=== PATIENT | female | born 1975 | race Caucasian/White ===

== ENCOUNTER 2016-06-05 14:45 | Inpatient (IN) | payer BC ==
[~2016-06-05] VITALS: Ht 162.6 cm; Wt 81.0 kg
[2016-06-05] MEDS ORDERED: MoRPHine SULFATE 4 MG/ML 1 ML CARP\\VIAL IV STA (15:10)
[2016-06-05] MEDS ORDERED: SODIUM CHLORIDE 0.9% 1000ML 1,000 ML IV STA (15:10)
[2016-06-05] MEDS ORDERED: ONDANSETRON INJ 2 MG/ML 2 ML VIAL IV STA (15:10)
[2016-06-05] MEDS ORDERED: VENL-271 PO (15:29)
[2016-06-05] MEDS ORDERED: ACET-1256 PO (15:29)
[2016-06-05] MEDS ORDERED: HYDR200T5 PO (15:29)
[2016-06-05] MEDS ORDERED: TACR1CAP PO (15:29)
[2016-06-05] MEDS ORDERED: SIMV20TA2 PO (15:29)
[2016-06-05] MEDS ORDERED: PRED-301 PO (15:29)
[2016-06-05] MEDS ORDERED: TPRSR/100 PO (15:29)
[2016-06-05] MEDS ORDERED: MYCO500T4 PO ×2 (15:29)
[2016-06-05] MEDS ORDERED: CLOP1TAB15 PO (15:29)
[2016-06-05] MEDS ORDERED: PRLSR20 PO (15:29)
--- NOTE | 2016-06-05 16:06 | DIAGNOSTIC IMAGING REPORT ---
CT SCAN OF THE ABDOMEN AND PELVIS WITHOUT CONTRAST CLINICAL HISTORY: Abdominal pain, nausea, history of renal transplantation. COMPARISON STUDY: No previous studies for comparison. TECHNIQUE: CT scan of the abdomen and pelvis was performed from the lung bases to the proximal femurs. Images are reviewed in the axial, sagittal, and coronal planes. IV contrast was not administered for this examination. CT DOSE: 449.19 mGy.cm FINDINGS: Lower chest: There are mild bibasal atelectatic changes. Liver: The unenhanced liver is normal in size, contour, and attenuation. There is no intrahepatic biliary ductal dilatation. Gallbladder: Unremarkable. Spleen: Normal in size and attenuation. Pancreas: Comparison. Somewhat atrophic. No masses are visualized. No ductal dilatation is evident Adrenal glands: Unremarkable. Kidneys: The [place] kidneys are atrophic. There is a right lower quadrant transplant kidney. There are no perinephric fluid collections. There is minimal fullness the right renal transplant collecting system Bowel: There are no transition zones indicate bowel obstruction. Evaluation the bowel is limited given the lack of oral and intravenous contrast. There is moderately extensive sigmoid diverticulosis. There are multiple small gas bubbles within the left pelvic region. I would favor these were being related to diverticula as opposed to an extraluminal gas bubbles. There is a suggestion of mild bowel wall thickening most pronounced within the ascending colon. This could indicate a colitis. Peritoneum: No free air is visualized. There is trace free fluid. There is increased density within the peritoneal fat. Vasculature: The abdominal aorta is normal in course and caliber. Adenopathy: None. Pelvic viscera: Bilateral tubal occlusion devices are visualized. Skeletal structures: No destructive osseous lesions are seen. IMPRESSION: 1. Atrophy of the [place] kidneys 2. Right lower quadrant transplant kidney. No perinephric fluid collections. Mild fullness of the transplant collecting system a finding which may be physiologic 3. Limited evaluation of the bowel given the lack of intravenous and oral contrast. Moderately extensive diverticulosis. Mild bowel wall thickening most pronounced involving the ascending colon. Clinical correlation in regards to a colitis is recommended 4. No evidence of bowel obstruction. No evidence of free air. No evidence of acute appendicitis. 5. Trace free fluid within the pelvis Electronically signed by: Gavino Horton M.D. 06/05/2016 4:04 PM Dictated Date/Time: 06/05/2016 3:54 PM
[2016-06-05 16:08] LABS: BASO % 0.1 %; BASO ABS # 0.02 K/uL (0-0.2); COMPLETE YES; EOS % 0.1 %; HEMATOCRIT 42.3 % (37-47); IG% 0.3 %; LYMPH % 4.1 %; LYMPH ABS # 0.79 K/uL (1.2-3.4); MEAN CELL VOLUME 88.1 fL (80-100); MEAN CORPUSCULAR HEMOGLOBIN 28.5 pg (25-34); MEAN CORPUSCULAR HGB CONC 32.4 g/dl (32-36); MEAN PLATELET VOLUME 11.5 fL (7.4-10.4); MONO % 3.9 %; NEUT % 91.5 %; PLATELET COUNT 233 K/uL (130-400); WHITE BLOOD COUNT 19.11 K/uL (4.8-10.8)
[2016-06-05] MEDS: MoRPHine SULFATE 4 MG/ML 1 ML CARP\\VIAL IV PRN ×3 (16:13→21:15)
[2016-06-05 16:29] LABS: BUN/CREATININE RATIO 16.8 (10-20); POTASSIUM 3.9 mmol/L (3.5-5.1)
[2016-06-05 16:35] LABS: URINE APPEARANCE CLEAR (CLEAR); URINE BILIRUBIN NEG (NEG); URINE COLOR YELLOW; URINE EPITHELIAL CELL AUTO >30 /lpf (0-5); URINE NITRITE NEG (NEG); URINE SPECIFIC GRAVITY 1.015 (1.000-1.030); UROBILINOGEN NEG (NEG)
[2016-06-05 16:38] LABS: MANUAL MICROSCOPIC REQUIRED? NO; REVIEW REQ? NO
[2016-06-05 17:20] VITALS: Ht 162.6 cm; Wt 81.0 kg
[2016-06-05] MEDS ORDERED: ACETAMINOPHEN 325 MG TAB PO PRN (18:00)
[2016-06-05] MEDS ORDERED: ENOXAPARIN 40 MG/0.4 ML SYR SQ SCH (18:00)
--- NOTE | 2016-06-05 18:16 | History and Physical ---
History & Physical Date & Time of Service: Jun 05, 2016 at 17:58 Chief Complaint: Abd Pain Primary Care Physician: No Doctor, Assigned History of Present Illness Source: patient This is a 41 yo F with PMHx of right abdominal kidney transplant in 2002 on immunsuppressant regimen, HTN and diverticulosis presenting with acute onset of abdominal pain which started at 11 Am today. She was scheduled to see rheumatology this morning and went to her appointment but was sent directly to the ED. She recently returned from a 2 week long trip in [place] on Thursday. She reports eating a variety of food including undercooked meats and shellfish. She traveled with her and a friend who do not have any abdominal complaints. She notes feeling bloated with worsening abdominal pain with bowel movements. She first noted this pain with a bowel movement today, and notes it was loose. She has received morphine sulfate which has dropped her pain from a 10/10 to a 5/10. She denies any nausea, vomiting, constipation. She denies fever, sweats or chills. Pt does report night sweats which have been ongoing for some time now. Here in the ED WBC is elevated at 19K with a left shift, Na= 135. A CT of the abdomen w/o contrast was obtained and shows a moderated diverticulosis. Past Medical/Surgical History Diverticulosis with acute diverticulitis Right abdominal kidney transplant HTN Family History FH: cancer FH: diabetes mellitus FH: gallbladder disease FH: heart disease FH: hypertension FH: kidney disease Social History Smoking Status: Never Smoker Smokeless Tobacco Use: No Alcohol Use: socially Drug Use: none Marital Status: Housing status: lives with family Occupational Status: employed Allergies Coded Allergies: Cefazolin (Verified Allergy, Severe, ANAPHYLAXIS, 06/05/16) Sulfa Antibiotics (Verified Allergy, Intermediate, Hives, 06/05/16) Azithromycin (Verified Adverse Reaction, Intermediate, Nausea/Vomiting, ) Home Medications Scheduled Clopidogrel (Plavix), 75 MG PO DAILY Hydroxychloroquine Sulfate (Plaquenil), 200 MG PO DAILY Metoprolol Succinate (Metoprolol Succinate ER), 100 MG PO BID Mycophenolate Mofetil (Cellcept), 500 MG PO QPM Mycophenolate Mofetil (Cellcept), 1,000 MG PO QAM Omeprazole (Prilosec), 20 MG PO DAILY Prednisone (Prednisone), 5 MG PO DAILY Simvastatin (Zocor), 20 MG PO QPM Tacrolimus (Prograf), 2 MG PO BID Venlafaxine Hcl (Venlafaxine Hcl Er), 37.5 MG PO QPM Scheduled PRN Acetaminophen (Tylenol), 1,000 MG PO UD PRN for Pain Review of Systems Constitutional: No chills, No fatigue, No fever, No sweats, No weakness, No weight loss Eyes: No diplopia ENT: No sore throat, No trouble swallowing Respiratory: No cough, No dyspnea on exertion, No shortness of breath Cardiovascular: No chest pain Abdomen: + diarrhea, + pain, No constipation, No nausea, No vomiting Musculoskeletal: No calf pain, No joint pain, No swelling Genitourinary - Female: No dysuria Neurologic: No balance problems, No numbness/tingling Psychiatric: No anxiety, No depression symptoms Endocrine: No fatigue Integumentary: No itch, No rash Physical Exam Vital Signs Date Time Temp Pulse Resp B/P Pulse Ox O2 Delivery O2 Flow Rate FiO2 06/05/16 17:13 88 16 131/76 99 Room Air 06/05/16 14:49 36.7 78 20 114/75 99 Room Air General Appearance: WD/WN, + moderate distress Head: normocephalic, atraumatic Eyes: PERRL, EOMI, + pertinent finding (mucous membranes moist) ENT: hearing grossly normal, pharynx normal Neck: supple, no JVD Respiratory/Chest: chest non-tender, lungs clear, no respiratory distress, no accessory muscle use Cardiovascular: regular rate, rhythm, no JVD, no murmur Abdomen/GI: normal bowel sounds, soft, + tenderness (with palpation LLQ + rebound tenderness, no pain with percussion, no distension, + scar on RLQ s/p kidney transplant) Back: normal inspection Extremities/Musculoskelatal: normal inspection, no calf tenderness, no pedal edema Neurologic/Psych: alert, normal mood/affect, oriented x 3 Skin: normal color, warm/dry Diagnostics Laboratory Results Results Past 24 Hours Test 06/05/16 15:30 06/05/16 16:15 Range/Units White Blood Count 19.11 4.8-10.8 K/uL Red Blood Count 4.80 4.2-5.4 M/uL Hemoglobin 13.7 12.0-16.0 g/dL Hematocrit 42.3 37-47 % Mean Corpuscular Volume 88.1 80-100 fL Mean Corpuscular Hemoglobin 28.5 25-34 pg Mean Corpuscular Hemoglobin Concent 32.4 32-36 g/dl Platelet Count 233 130-400 K/uL Mean Platelet Volume 11.5 7.4-10.4 fL Neutrophils (%) (Auto) 91.5 % Lymphocytes (%) (Auto) 4.1 % Monocytes (%) (Auto) 3.9 % Eosinophils (%) (Auto) 0.1 % Basophils (%) (Auto) 0.1 % Neutrophils # (Auto) 17.50 1.4-6.5 K/uL Lymphocytes # (Auto) 0.79 1.2-3.4 K/uL Monocytes # (Auto) 0.74 0.11-0.59 K/uL Eosinophils # (Auto) 0.01 0-0.5 K/uL Basophils # (Auto) 0.02 0-0.2 K/uL RDW Standard Deviation 42.6 36.4-46.3 fL RDW Coefficient of Variation 13.1 11.5-14.5 % Immature Granulocyte % (Auto) 0.3 % Immature Granulocyte # (Auto) 0.05 0.00-0.02 K/uL Sodium Level 135 136-145 mmol/L Potassium Level 3.9 3.5-5.1 mmol/L Chloride Level 100 98-107 mmol/L Carbon Dioxide Level 28 21-32 mmol/L Anion Gap 7.0 3-11 mmol/L Blood Urea Nitrogen 17 7-18 mg/dl Creatinine 1.00 0.60-1.20 mg/dl Est Creatinine Clear Calc Drug Dose 74.7 ml/min Estimated GFR () 79.9 Estimated GFR (Non- 69.0 BUN/Creatinine Ratio 16.8 10-20 Random Glucose 102 70-99 mg/dl Calcium Level 9.0 8.5-10.1 mg/dl Total Bilirubin 0.6 0.2-1 mg/dl Direct Bilirubin 0.2 0-0.2 mg/dl Aspartate Amino Transf (AST/SGOT) 18 15-37 U/L Alanine Aminotransferase (ALT/SGPT) 20 12-78 U/L Alkaline Phosphatase 45 45-117 U/L Total Protein 6.9 6.4-8.2 gm/dl Albumin 4.0 3.4-5.0 gm/dl Lipase 81 73-393 U/L Urine Color YELLOW Urine Appearance CLEAR CLEAR Urine pH 6.0 4.5-7.5 Urine Specific [place] 1.015 1.000-1.030 Urine Protein NEG NEG Urine Glucose (UA) NEG NEG Urine Ketones 1+ NEG Urine Occult Blood NEG NEG Urine Nitrite NEG NEG Urine Bilirubin NEG NEG Urine Urobilinogen NEG NEG Urine Leukocyte Esterase SMALL NEG Urine WBC (Auto) 1-5 0-5 /hpf Urine RBC (Auto) 0-4 0-4 /hpf Urine Hyaline Casts (Auto) 1-5 0-5 /lpf Urine Epithelial Cells (Auto) >30 0-5 /lpf Urine Bacteria (Auto) NEG NEG Urine Test NEG NEG Diagnostic Radiology CT SCAN OF THE ABDOMEN AND PELVIS WITHOUT CONTRAST CLINICAL HISTORY: Abdominal pain, nausea, history of renal transplantation. COMPARISON STUDY: No previous studies for comparison. TECHNIQUE: CT scan of the abdomen and pelvis was performed from the lung bases to the proximal femurs. Images are reviewed in the axial, sagittal, and coronal planes. IV contrast was not administered for this examination. CT DOSE: 449.19 mGy.cm FINDINGS: Lower chest: There are mild bibasal atelectatic changes. Liver: The unenhanced liver is normal in size, contour, and attenuation. There is no intrahepatic biliary ductal dilatation. Gallbladder: Unremarkable. Spleen: Normal in size and attenuation. Pancreas: Comparison. Somewhat atrophic. No masses are visualized. No ductal dilatation is evident Adrenal glands: Unremarkable. Kidneys: The [place] kidneys are atrophic. There is a right lower quadrant transplant kidney. There are no perinephric fluid collections. There is minimal fullness the right renal transplant collecting system Bowel: There are no transition zones indicate bowel obstruction. Evaluation the bowel is limited given the lack of oral and intravenous contrast. There is moderately extensive sigmoid diverticulosis. There are multiple small gas bubbles within the left pelvic region. I would favor these were being related to diverticula as opposed to an extraluminal gas bubbles. There is a suggestion of mild bowel wall thickening most pronounced within the ascending colon. This could indicate a colitis. Peritoneum: No free air is visualized. There is trace free fluid. There is increased density within the peritoneal fat. Vasculature: The abdominal aorta is normal in course and caliber. Adenopathy: None. Pelvic viscera: Bilateral tubal occlusion devices are visualized. Skeletal structures: No destructive osseous lesions are seen. IMPRESSION: 1. Atrophy of the [place] kidneys 2. Right lower quadrant transplant kidney. No perinephric fluid collections. Mild fullness of the transplant collecting system a finding which may be physiologic 3. Limited evaluation of the bowel given the lack of intravenous and oral contrast. Moderately extensive diverticulosis. Mild bowel wall thickening most pronounced involving the ascending colon. Clinical correlation in regards to a colitis is recommended 4. No evidence of bowel obstruction. No evidence of free air. No evidence of acute appendicitis. 5. Trace free fluid within the pelvis Electronically signed by: Gavino Horton M.D. 06/05/2016 4:04 PM Dictated Date/Time: 06/05/2016 3:54 PM The status of this report is Signed. Impression Assessment and Plan This is a 41 yo F with PMHx of right abdominal kidney transplant in 2002 on immunsuppressant regimen, HTN and diverticulosis presenting with acute onset of abdominal pain which started at 11 Am today. Diverticulitis - Admit to med surg - Will start the pt on cipro/flagyl - WBC 19K with left shift, afebrile so far, other VSS - NSS at 100ml/hr for hydration - Check stool studies to rule out salmonella, shigella or other infectious etiology with recent travel and consumption of undercooked meats and shellfish - Bowel rest - Analgesia with morphine sulfate S/p Kidney Transplant - Follows with rheum as an outpatient - Continue on [employer] cellcept, prograf and prednisone 5 mg daily - Stable HTN - Cont metoprolol succ 100mg BID DVT ppx: teds, scds, heparin sq CODE STATUS: FULL CODE Disposition: From home, discharge when medically stable. Level of Care Med/Surg Resuscitation Status FULL RESUSCITATION VTE Prophylaxis VTE Risk Assessment Done? Y/N: Yes Risk Level: Low Given or contraindicated: Unfractionated heparin SQ, T.E.D. Stockings, SCD's
[2016-06-05 19:01] VITALS: BP 107/74; PULSE 90; TEMP 36.6; O2SAT 98
[2016-06-05] MEDS: METRONIDAZOLE / NSS 500 MG in PREMIXED NSS 100 ML IV SCH (19:45)
[2016-06-05] MEDS: SODIUM CHLORIDE 0.9% 1000ML 1,000 ML IV SCH (19:45)
[2016-06-05 19:46] LABS: PARTIAL THROMBOPLASTIN RATIO 0.9; PROTHROMBIN TIME (PATIENT) 10.5 SECONDS (9.0-12.0)
--- NOTE | 2016-06-05 19:51 | EMERGENCY ROOM VISIT NOTE ---
History First contact with patient: 14:57 Chief Complaint: ABDOMINAL PAIN Stated Complaint: ABD PAIN History of Present Illness The patient is a 41 year old female who presents to the Emergency Room with complaints of severe and progressively worsening central abdominal pain. The patient reports that symptoms started around 11 AM. At that time, the pain seemed to be mostly in the left flank region. It now covers and higher central abdomen. She reports nausea without vomiting. She initially thought that she had a lot of gas, but did not have any flatulence or belching. The patient reports the pain comes in waves. It does not radiate into the chest or back. She denies any recent urinary symptoms. The patient is status post kidney transplant in 2002 with her kidney in the right lower quadrant region. She is also on immunosuppressant treatment. Patient also has a 15 year history of lupus. She was at her value analyst's office today and was instructed to come here for further evaluation. The patient denies any other prior abdominal surgeries. She denies . She rates her discomfort a 9 out of 10. There are no alleviating factors for her pain. The patient does report that she was recently in [place] for 2 weeks, and ate a lot of seafood. No other friends or family got sick. She did have some loose stools this morning as well , which is typical for her. Yesterday her stools were well formed, which is unusual. Review of Systems HEENT: Denies dizziness, visual problems, hearing loss, tinnitus. Denies difficulty swallowing or oral lesions. PULMONARY: Denies cough, shortness of breath, sputum production or hemoptysis. CARDIOVASCULAR: Denies chest pain, palpitations, dyspnea on exertion, orthopnea or peripheral edema. GASTROINTESTINAL: Denies recent diarrhea or constipation, otherwise see history of present illness. GENITOURINARY: Denies dysuria, frequency, urgency or nocturia. NEUROLOGIC: Denies history of epilepsy, CVA, TIA or chronic headaches. MUSCULOSKELETAL: Denies history of joint tenderness/swelling. SKIN: Denies rashes or lesions. PSYCHIATRIC: Denies history of depression or mental illness. ENDOCRINE: Denies history of diabetes or thyroid disorders. Past Medical/Surgical History Medical Problems: (1) Abdominal pain (2) Lupus Surgical Problems: (1) Encounter for Essure implantation (2) History of kidney transplant Family History FH: cancer FH: diabetes mellitus FH: gallbladder disease FH: heart disease FH: hypertension FH: kidney disease Social History Smoking Status: Never Smoker Alcohol Use: occasionally Marital Status: Occupation Status: employed Current/Historical Medications Scheduled Clopidogrel (Plavix), 75 MG PO DAILY Hydroxychloroquine Sulfate (Plaquenil), 200 MG PO DAILY Metoprolol Succinate (Metoprolol Succinate ER), 100 MG PO BID Mycophenolate Mofetil (Cellcept), 500 MG PO QPM Mycophenolate Mofetil (Cellcept), 1,000 MG PO QAM Omeprazole (Prilosec), 20 MG PO DAILY Prednisone (Prednisone), 5 MG PO DAILY Simvastatin (Zocor), 20 MG PO QPM Tacrolimus (Prograf), 2 MG PO BID Venlafaxine Hcl (Venlafaxine Hcl Er), 37.5 MG PO QPM Scheduled PRN Acetaminophen (Tylenol), 1,000 MG PO UD PRN for Pain Allergies Coded Allergies: Cefazolin (Verified Allergy, Severe, ANAPHYLAXIS, 06/05/16) Sulfa Antibiotics (Verified Allergy, Intermediate, Hives, 06/05/16) Azithromycin (Verified Adverse Reaction, Intermediate, Nausea/Vomiting, ) Physical Exam Vital Signs Date Time Temp Pulse Resp B/P Pulse Ox O2 Delivery O2 Flow Rate FiO2 06/05/16 17:20 Room Air 06/05/16 17:13 88 16 131/76 99 Room Air 06/05/16 14:49 36.7 78 20 114/75 99 Room Air Physical Exam CONSTITUTIONAL: Healthy and well nourished. Alert and oriented X 3 with positive affect. She appears in severe distress on initial exam. HEENT: Normocephalic, atraumatic. Pupils equal, round and reactive. Ears and nares are clear. No scleral icterus or conjunctival injection/pallor. NECK: Full active range of motion without discomfort. No JVD or carotid bruits. RESPIRATORY: Clear to auscultation bilaterally with no wheezing, crackles, rhonchi or stridor. CARDIOVASCULAR: Regular rate and rhythm with no murmurs, rubs or gallops. GASTROINTESTINAL: Bowel sounds present in all quadrants. Should has diffuse and significant tenderness to palpation without rigidity, guarding or rebound. Negative CVA tenderness. No palpable pulsatile masses. MUSCULOSKELETAL: Full range of motion of all joints without discomfort. INTEGUMENTARY: No rash or other significant dermatologic conditions noted. HEMATOLOGIC: No ecchymosis or petechiae. NEUROLOGIC: No focal neurologic deficits noted. Medical Decision & Procedures ER Provider Diagnostic Interpretation: Noncontrast CT of the abdomen and pelvis shows a nonspecific colitis of the ascending colon. The patient also has moderate diverticular disease without any obvious diverticulitis condition, given limitations with lack of IV or oral contrast. No obstruction is noted. Transplanted kidney is visualized without any perinephritic stranding. Radiologist report is as follows: CT SCAN OF THE ABDOMEN AND PELVIS WITHOUT CONTRAST CLINICAL HISTORY: Abdominal pain, nausea, history of renal transplantation. COMPARISON STUDY: No previous studies for comparison. TECHNIQUE: CT scan of the abdomen and pelvis was performed from the lung bases to the proximal femurs. Images are reviewed in the axial, sagittal, and coronal planes. IV contrast was not administered for this examination. CT DOSE: 449.19 mGy.cm FINDINGS: Lower chest: There are mild bibasal atelectatic changes. Liver: The unenhanced liver is normal in size, contour, and attenuation. There is no intrahepatic biliary ductal dilatation. Gallbladder: Unremarkable. Spleen: Normal in size and attenuation. Pancreas: Comparison. Somewhat atrophic. No masses are visualized. No ductal dilatation is evident Adrenal glands: Unremarkable. Kidneys: The [place] kidneys are atrophic. There is a right lower quadrant transplant kidney. There are no perinephric fluid collections. There is minimal fullness the right renal transplant collecting system Bowel: There are no transition zones indicate bowel obstruction. Evaluation the bowel is limited given the lack of oral and intravenous contrast. There is moderately extensive sigmoid diverticulosis. There are multiple small gas bubbles within the left pelvic region. I would favor these were being related to diverticula as opposed to an extraluminal gas bubbles. There is a suggestion of mild bowel wall thickening most pronounced within the ascending colon. This could indicate a colitis. Peritoneum: No free air is visualized. There is trace free fluid. There is increased density within the peritoneal fat. Vasculature: The abdominal aorta is normal in course and caliber. Adenopathy: None. Pelvic viscera: Bilateral tubal occlusion devices are visualized. Skeletal structures: No destructive osseous lesions are seen. IMPRESSION: 1. Atrophy of the [place] kidneys 2. Right lower quadrant transplant kidney. No perinephric fluid collections. Mild fullness of the transplant collecting system a finding which may be physiologic 3. Limited evaluation of the bowel given the lack of intravenous and oral contrast. Moderately extensive diverticulosis. Mild bowel wall thickening most pronounced involving the ascending colon. Clinical correlation in regards to a colitis is recommended 4. No evidence of bowel obstruction. No evidence of free air. No evidence of acute appendicitis. 5. Trace free fluid within the pelvis Laboratory Results 06/05/16 15:30 Red Blood Count 4.80, Mean Corpuscular Volume 88.1, Mean Corpuscular Hemoglobin 28.5, Mean Corpuscular Hemoglobin Concent 32.4, Mean Platelet Volume 11.5, Neutrophils (%) (Auto) 91.5, Lymphocytes (%) (Auto) 4.1, Monocytes (%) (Auto) 3.9, Eosinophils (%) (Auto) 0.1, Basophils (%) (Auto) 0.1, Neutrophils # (Auto) 17.50, Lymphocytes # (Auto) 0.79, Monocytes # (Auto) 0.74, Eosinophils # (Auto) 0.01, Basophils # (Auto) 0.02 06/05/16 15:30 Test 06/05/16 15:30 06/05/16 16:15 White Blood Count 19.11 K/uL (4.8-10.8) Red Blood Count 4.80 M/uL (4.2-5.4) Hemoglobin 13.7 g/dL (12.0-16.0) Hematocrit 42.3 % (37-47) Mean Corpuscular Volume 88.1 fL (80-100) Mean Corpuscular Hemoglobin 28.5 pg (25-34) Mean Corpuscular Hemoglobin Concent 32.4 g/dl (32-36) Platelet Count 233 K/uL (130-400) Mean Platelet Volume 11.5 fL (7.4-10.4) Neutrophils (%) (Auto) 91.5 % Lymphocytes (%) (Auto) 4.1 % Monocytes (%) (Auto) 3.9 % Eosinophils (%) (Auto) 0.1 % Basophils (%) (Auto) 0.1 % Neutrophils # (Auto) 17.50 K/uL (1.4-6.5) Lymphocytes # (Auto) 0.79 K/uL (1.2-3.4) Monocytes # (Auto) 0.74 K/uL (0.11-0.59) Eosinophils # (Auto) 0.01 K/uL (0-0.5) Basophils # (Auto) 0.02 K/uL (0-0.2) RDW Standard Deviation 42.6 fL (36.4-46.3) RDW Coefficient of Variation 13.1 % (11.5-14.5) Immature Granulocyte % (Auto) 0.3 % Immature Granulocyte # (Auto) 0.05 K/uL (0.00-0.02) Anion Gap 7.0 mmol/L (3-11) Est Creatinine Clear Calc Drug Dose 74.7 ml/min Estimated GFR () 79.9 Estimated GFR (Non- 69.0 BUN/Creatinine Ratio 16.8 (10-20) Calcium Level 9.0 mg/dl (8.5-10.1) Total Bilirubin 0.6 mg/dl (0.2-1) Direct Bilirubin 0.2 mg/dl (0-0.2) Aspartate Amino Transf (AST/SGOT) 18 U/L (15-37) Alanine Aminotransferase (ALT/SGPT) 20 U/L (12-78) Alkaline Phosphatase 45 U/L (45-117) Total Protein 6.9 gm/dl (6.4-8.2) Albumin 4.0 gm/dl (3.4-5.0) Lipase 81 U/L (73-393) Urine Color YELLOW Urine Appearance CLEAR (CLEAR) Urine pH 6.0 (4.5-7.5) Urine Specific [place] 1.015 (1.000-1.030) Urine Protein NEG (NEG) Urine Glucose (UA) NEG (NEG) Urine Ketones 1+ (NEG) Urine Occult Blood NEG (NEG) Urine Nitrite NEG (NEG) Urine Bilirubin NEG (NEG) Urine Urobilinogen NEG (NEG) Urine Leukocyte Esterase SMALL (NEG) Urine WBC (Auto) 1-5 /hpf (0-5) Urine RBC (Auto) 0-4 /hpf (0-4) Urine Hyaline Casts (Auto) 1-5 /lpf (0-5) Urine Epithelial Cells (Auto) >30 /lpf (0-5) Urine Bacteria (Auto) NEG (NEG) Urine Test NEG (NEG) The above labs were reviewed. White count is over 19,000 with left shift and bandemia. Sodium 135. Urinalysis is not suggestive of infection, and urine is negative. LFTs and lipase are normal. Medications Administered Medications (Trade) Dose Ordered Sig/Smita Route Start Time Stop Time Status Last Admin Dose Admin Sodium Chloride (Nss 1000ml) 1,000 ml @ 500 mls/hr Q2H STAT IV 06/05/16 15:10 06/05/16 17:09 DC 06/05/16 15:37 500 MLS/HR Ondansetron HCl (Zofran Inj) 4 mg NOW STAT IV 06/05/16 15:10 06/05/16 15:14 DC 06/05/16 15:37 4 MG Morphine Sulfate (MoRPHine SULFATE INJ) 4 mg NOW STAT IV 06/05/16 15:10 06/05/16 15:14 DC 06/05/16 15:37 4 MG Morphine Sulfate (MoRPHine SULFATE INJ) 4 mg Q30M PRN IV 06/05/16 15:15 06/05/16 19:11 DC 06/05/16 17:39 4 MG Procedure 1. IV hydration: The patient received a normal saline 500 mL bolus 2. IV medications: The patient was initially administered morphine 4 mg and Zofran 4 mg IVP. She did receive an additional dose of morphine 4 mg IVP which provided excellent pain relief. ED Course Patient history and physical exam were performed. Nurse's notes were reviewed. Vital signs were reviewed and were normal. The patient was in severe discomfort. IV access was established, and labs were drawn. The patient was hydrated with normal saline, and received IV medications as discussed in the previous Procedure section. Review of labs shows a markedly elevated white count of over 19,000 with left shift and bandemia. She also has a mild hyponatremia. LFTs, lipase and urinalysis are otherwise normal. Noncontrast CT of the abdomen and pelvis shows colitis of the ascending colon, and moderate diverticulosis. Otherwise there is no perinephritic stranding, obstruction or other significant findings given limitations without intravenous or oral contrast. The case was discussed with Dr. Meza, ED at any physician, who suggested hospitalist evaluation given her immunosuppressed state, status post kidney transplant, lupus and marked leukocytosis. The case was further discussed with the [facility] hospitalist service. Please see their dictation for further treatment and final disposition. Medical Decision Patient presents to the emergency department with complaint of abdominal pain. Her CT scan is showing evidence for colitis of the ascending colon. Although she has moderate diverticulosis, no obvious diverticulitis is noted. There does not appear to be any perinephritic stranding, and urinalysis is not suggestive of infection. He has no evidence for obstruction, appendicitis or other acute intra-abdominal findings. Her laboratory studies are not suggestive of pancreatitis, cholecystitis or hepatitis. Impression Primary Impression: Colitis, acute Additional Impressions: History of kidney transplant Lupus Departure Information Referrals No Doctor, Assigned (PCP) Patient Instructions My [facility] Problem Qualifiers Additional Impressions: Lupus Systemic lupus erythematosus type: unspecified Systemic lupus erythematosus organ involvement: unspecified Qualified Codes: M32.9 - Systemic lupus erythematosus, unspecified
[2016-06-05] MEDS: CIPROFLOXACIN / D5W 400 MG in PREMIXED IN D5W 200 ML IV SCH (21:15)
[2016-06-05] MEDS: TACROLIMUS 1 MG CAP PO SCH (21:18)
[2016-06-05] MEDS: METOPROLOL SUCC 50MG EXT REL TAB PO SCH (21:20)
[2016-06-05] MEDS: SIMVASTATIN 20 MG TAB PO SCH (21:20)
[2016-06-05] MEDS: MYCOPHENOLATE MOFETIL 250 MG CAP (CELLCEPT) PO SCH (21:21)
[2016-06-05] MEDS: VENLAFAXINE HCL XR 37.5 MG CAPXR PO SCH (21:21)
[2016-06-05] MEDS: HEPARIN SOD 5000 UNIT/0.5 ML CARP SQ SCH (21:21)
[2016-06-05 22:56] VITALS: BP 138/85; PULSE 91; TEMP 36.9; O2SAT 95
[2016-06-06] VITALS: O2SAT 100
[2016-06-06] MEDS: MoRPHine SULFATE 4 MG/ML 1 ML CARP\\VIAL IV PRN (01:00)
[2016-06-06] MEDS: ONDANSETRON INJ 2 MG/ML 2 ML VIAL IV PRN ×3 (01:01→16:45)
[2016-06-06] MEDS: SODIUM CHLORIDE 0.9% 1000ML 1,000 ML IV SCH ×2 (04:06→13:30)
[2016-06-06] MEDS: METRONIDAZOLE / NSS 500 MG in PREMIXED NSS 100 ML IV SCH ×3 (04:06→21:26)
[2016-06-06] MEDS: HEPARIN SOD 5000 UNIT/0.5 ML CARP SQ SCH ×3 (05:07→20:22)
[2016-06-06 06:06] LABS: HEMATOCRIT 36.8 % (37-47); MEAN CELL VOLUME 88.5 fL (80-100); MEAN CORPUSCULAR HEMOGLOBIN 28.6 pg (25-34); MEAN CORPUSCULAR HGB CONC 32.3 g/dl (32-36); MEAN PLATELET VOLUME 11.1 fL (7.4-10.4); PLATELET COUNT 190 K/uL (130-400); RED BLOOD COUNT 4.16 M/uL (4.2-5.4); WHITE BLOOD COUNT 27.15 K/uL (4.8-10.8)
[2016-06-06 06:35] LABS: BASO % 0.1 %; BASO ABS # 0.02 K/uL (0-0.2); COMPLETE YES; IG% 0.4 %; LYMPH ABS # 0.81 K/uL (1.2-3.4); MONO % 4.5 %
[2016-06-06 06:44] LABS: BUN/CREATININE RATIO 16.7 (10-20); CALCIUM 8.2 mg/dl (8.5-10.1); CREATININE 0.87 mg/dl (0.60-1.20); POTASSIUM 4.1 mmol/L (3.5-5.1)
[2016-06-06 08:00] VITALS: O2SAT 100
[2016-06-06 08:12] VITALS: BP 118/78; PULSE 92; TEMP 36.8; O2SAT 95
[2016-06-06] MEDS: CIPROFLOXACIN / D5W 400 MG in PREMIXED IN D5W 200 ML IV SCH ×2 (08:23→21:26)
[2016-06-06] MEDS: HYDROXYCHLOROQUINE SULFATE 200 MG TAB PO SCH (08:24)
[2016-06-06] MEDS: CLOPIDOGREL BISULFATE 75 MG TAB PO SCH (08:24)
[2016-06-06] MEDS: PANTOprazole SOD 40 MG TAB PO SCH (08:24)
[2016-06-06] MEDS: METOPROLOL SUCC 50MG EXT REL TAB PO SCH ×2 (08:24→21:35)
[2016-06-06] MEDS: MYCOPHENOLATE MOFETIL 250 MG CAP (CELLCEPT) PO SCH ×2 (08:24→21:34)
[2016-06-06] MEDS: TACROLIMUS 1 MG CAP PO SCH ×2 (08:24→21:34)
[2016-06-06] MEDS ORDERED: HYDROmorphone INJ 0.5 MG/0.5 ML SYR IV STA (08:29)
[2016-06-06] MEDS ORDERED: HYDROmorphone INJ 0.5 MG/0.5 ML SYR ONE (08:35)
[2016-06-06] MEDS: HYDROmorphone INJ 0.5 MG/0.5 ML SYR IV STA ×2 (09:06→09:15)
[2016-06-06] MEDS ORDERED: NURSING VERBAL MED ORDER ONE ×2 (12:15)
[2016-06-06] MEDS: PROCHLORPERAZINE INJ 5 MG in SYRINGE 4 ML IV PRN ×2 (12:30→21:27)
[2016-06-06] MEDS: HYDROmorphone INJ 0.5 MG/0.5 ML SYR IV PRN ×3 (13:24→21:27)
[2016-06-06 15:04] VITALS: BP 127/81; PULSE 96; TEMP 37.4; O2SAT 97
--- NOTE | 2016-06-06 15:05 | Progress Note ---
Subjective Date of Service: Jun 06, 2016. Subjective Pt evaluation today including: conversation w/ patient, physical exam, chart review, lab review, review of studies, review of inpatient medication list initially seen this AM writing in pain - periumbilical radiation to lower abdomen. nausea although she relates that to the pain meds as well. no f/c/s. no diarrhea. pain worse after trying clears. revisited. increase in pain meds helped significantly. still ongoing nausea but overall much more comfortable Problem List Medical Problems: (1) Colitis, acute Status: Acute Review of Systems ros otherwise negative except for as above Objective Vital Signs Date Time Temp Pulse Resp B/P Pulse Ox O2 Delivery O2 Flow Rate FiO2 06/06/16 08:12 36.8 92 16 118/78 95 Room Air 06/06/16 08:00 100 Room Air 06/06/16 00:00 100 Room Air 06/05/16 22:56 36.9 91 18 138/85 95 Room Air 06/05/16 19:01 36.6 90 18 107/74 98 Room Air 06/05/16 18:26 89 18 123/78 100 Room Air 06/05/16 17:20 Room Air 06/05/16 17:13 88 16 131/76 99 Room Air Physical Exam General Appearance: + pertinent finding (initiall writhing in pain. later more comfortable - appearing mildly uncomfortable but much better than before) Eyes: EOMI ENT: hearing grossly normal Neck: trachea midline Respiratory/Chest: no respiratory distress, no accessory muscle use Abdomen: soft, + tenderness (periumbilcal and LLQ although exam difficult due to pain. 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, alert, normal mood/affect ( fitting to the situation) Skin: normal color, warm/dry Laboratory Results Last 24 Hours Test 06/05/16 15:30 06/05/16 16:15 06/06/16 05:18 White Blood Count 19.11 K/uL 27.15 K/uL Red Blood Count 4.80 M/uL 4.16 M/uL Hemoglobin 13.7 g/dL 11.9 g/dL Hematocrit 42.3 % 36.8 % Mean Corpuscular Volume 88.1 fL 88.5 fL Mean Corpuscular Hemoglobin 28.5 pg 28.6 pg Mean Corpuscular Hemoglobin Concent 32.4 g/dl 32.3 g/dl Platelet Count 233 K/uL 190 K/uL Mean Platelet Volume 11.5 fL 11.1 fL Neutrophils (%) (Auto) 91.5 % 92.0 % Lymphocytes (%) (Auto) 4.1 % 3.0 % Monocytes (%) (Auto) 3.9 % 4.5 % Eosinophils (%) (Auto) 0.1 % 0.0 % Basophils (%) (Auto) 0.1 % 0.1 % Neutrophils # (Auto) 17.50 K/uL 25.01 K/uL Lymphocytes # (Auto) 0.79 K/uL 0.81 K/uL Monocytes # (Auto) 0.74 K/uL 1.21 K/uL Eosinophils # (Auto) 0.01 K/uL 0.00 K/uL Basophils # (Auto) 0.02 K/uL 0.02 K/uL RDW Standard Deviation 42.6 fL 42.7 fL RDW Coefficient of Variation 13.1 % 13.2 % Immature Granulocyte % (Auto) 0.3 % 0.4 % Immature Granulocyte # (Auto) 0.05 K/uL 0.10 K/uL Prothrombin Time 10.5 SECONDS Prothromb Time International Ratio 1.0 Activated Partial Thromboplast Time 24.0 SECONDS Partial Thromboplastin Ratio 0.9 Sodium Level 135 mmol/L 135 mmol/L Potassium Level 3.9 mmol/L 4.1 mmol/L Chloride Level 100 mmol/L 100 mmol/L Carbon Dioxide Level 28 mmol/L 26 mmol/L Anion Gap 7.0 mmol/L 9.0 mmol/L Blood Urea Nitrogen 17 mg/dl 15 mg/dl Creatinine 1.00 mg/dl 0.87 mg/dl Est Creatinine Clear Calc Drug Dose 74.7 ml/min 85.9 ml/min Estimated GFR () 79.9 94.6 Estimated GFR (Non- 69.0 81.6 BUN/Creatinine Ratio 16.8 16.7 Random Glucose 102 mg/dl 77 mg/dl Calcium Level 9.0 mg/dl 8.2 mg/dl Total Bilirubin 0.6 mg/dl Direct Bilirubin 0.2 mg/dl Aspartate Amino Transf (AST/SGOT) 18 U/L Alanine Aminotransferase (ALT/SGPT) 20 U/L Alkaline Phosphatase 45 U/L Total Protein 6.9 gm/dl Albumin 4.0 gm/dl Lipase 81 U/L Urine Color YELLOW Urine Appearance CLEAR Urine pH 6.0 Urine Specific [place] 1.015 Urine Protein NEG Urine Glucose (UA) NEG Urine Ketones 1+ Urine Occult Blood NEG Urine Nitrite NEG Urine Bilirubin NEG Urine Urobilinogen NEG Urine Leukocyte Esterase SMALL Urine WBC (Auto) 1-5 /hpf Urine RBC (Auto) 0-4 /hpf Urine Hyaline Casts (Auto) 1-5 /lpf Urine Epithelial Cells (Auto) >30 /lpf Urine Bacteria (Auto) NEG Urine Test NEG Red Blood Cell Morphology Unremarkable Assessment and Plan Diverticulitis - presumably. eating undercooked foods begs the question of a food borne illness, but no vomiting/diarrhea, CT was unehanced but overall situation fits with diverticulitis more than other possible pathologies - continue cipro and flagyl - WBC did rise but otherwise clinically appearing stable after pain control. does not meet other SIRS criteria overall (HR up some but likely more from pain and nausea given context) - any further worsening or failure to improve will then need to repeat CT w contrast to look for any true evdience of abscess/extent of pathology, etc. - continue pain and nausea control S/p Kidney Transplant - Continue on [employer] cellcept, prograf and prednisone 5 mg daily - Stable renal function HTN - Cont metoprolol succ 100mg BID, follow BP DVT proph - heparin sq CODE STATUS: FULL CODE
[2016-06-06 16:10] VITALS: O2SAT 97
[2016-06-06] MEDS: VENLAFAXINE HCL XR 37.5 MG CAPXR PO SCH (21:35)
[2016-06-06] MEDS: SIMVASTATIN 20 MG TAB PO SCH (21:36)
[2016-06-06 22:58] VITALS: BP 118/78; PULSE 102; TEMP 36.9; O2SAT 95
[2016-06-07] VITALS (7 sets, daily range): BP systolic 130–144; BP diastolic 80–94; PULSE 84–94; TEMP 36.7–37.3; O2SAT 95–99
[2016-06-07] MEDS: SODIUM CHLORIDE 0.9% 1000ML 1,000 ML IV SCH ×3 (01:31→19:31)
[2016-06-07] MEDS: ONDANSETRON INJ 2 MG/ML 2 ML VIAL IV PRN ×3 (01:40→23:02)
[2016-06-07] MEDS: HYDROmorphone INJ 0.5 MG/0.5 ML SYR IV PRN ×3 (01:43→09:08)
[2016-06-07] MEDS: METRONIDAZOLE / NSS 500 MG in PREMIXED NSS 100 ML IV SCH ×3 (04:06→19:30)
[2016-06-07] MEDS: HEPARIN SOD 5000 UNIT/0.5 ML CARP SQ SCH ×3 (06:00→21:13)
[2016-06-07] MEDS: PROCHLORPERAZINE INJ 5 MG in SYRINGE 4 ML IV PRN (06:10)
[2016-06-07 07:15] LABS: HEMATOCRIT 34.2 % (37-47); MEAN CELL VOLUME 88.1 fL (80-100); MEAN CORPUSCULAR HEMOGLOBIN 28.1 pg (25-34); MEAN CORPUSCULAR HGB CONC 31.9 g/dl (32-36); PLATELET COUNT 160 K/uL (130-400); RED BLOOD COUNT 3.88 M/uL (4.2-5.4)
[2016-06-07 07:40] LABS: COMPLETE YES; IG% 0.4 %; LYMPH % 2.3 %; LYMPH ABS # 0.52 K/uL (1.2-3.4); MONO % 3.1 %; NEUT % 94.2 %
[2016-06-07 07:44] LABS: BUN/CREATININE RATIO 15.2 (10-20); CALCIUM 8.3 mg/dl (8.5-10.1); CREATININE 0.75 mg/dl (0.60-1.20)
[2016-06-07] MEDS: CIPROFLOXACIN / D5W 400 MG in PREMIXED IN D5W 200 ML IV SCH ×2 (07:58→21:12)
[2016-06-07] MEDS: HYDROXYCHLOROQUINE SULFATE 200 MG TAB PO SCH (07:58)
[2016-06-07] MEDS: CLOPIDOGREL BISULFATE 75 MG TAB PO SCH (07:58)
[2016-06-07] MEDS: MYCOPHENOLATE MOFETIL 250 MG CAP (CELLCEPT) PO SCH ×2 (07:58→21:12)
[2016-06-07] MEDS: PANTOprazole SOD 40 MG TAB PO SCH (07:59)
[2016-06-07] MEDS: TACROLIMUS 1 MG CAP PO SCH ×2 (07:59→21:12)
[2016-06-07] MEDS: METOPROLOL SUCC 50MG EXT REL TAB PO SCH ×2 (07:59→21:12)
[2016-06-07] MEDS: ACETAMINOPHEN 325 MG TAB PO PRN ×2 (13:15→19:31)
--- NOTE | 2016-06-07 17:27 | Progress Note ---
Subjective Date of Service: Jun 07, 2016. Subjective Pt evaluation today including: conversation w/ patient, physical exam, chart review, lab review, review of inpatient medication list feeling better pain better controlled, nausea relates to pain meds so nausea better since needing less pain meds still has mid to lower abdominal pain - worse with movement. no f/c/s no BM Problem List Medical Problems: (1) Colitis, acute Status: Acute Review of Systems ros otherwise negative except for as above Objective Vital Signs Date Time Temp Pulse Resp B/P Pulse Ox O2 Delivery O2 Flow Rate FiO2 06/07/16 16:05 99 Room Air 06/07/16 15:53 36.9 84 18 132/88 99 Room Air 06/07/16 08:36 97 Room Air 06/07/16 08:00 Room Air 06/07/16 07:45 37.3 85 20 130/80 97 Room Air 06/07/16 00:17 95 Room Air 06/06/16 22:58 36.9 102 18 118/78 95 Room Air Physical Exam General Appearance: no apparent distress Eyes: EOMI ENT: hearing grossly normal Neck: trachea midline Respiratory/Chest: no respiratory distress, no accessory muscle use Abdomen: soft, + tenderness (mid to LLQ tenderness with voluntary guarding but no involuntary guarding, hypoactive bowel sounds) Extremities: normal range of motion 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, alert, normal mood/affect Skin: normal color, warm/dry Laboratory Results Last 24 Hours Test 06/07/16 06:45 White Blood Count 22.50 K/uL Red Blood Count 3.88 M/uL Hemoglobin 10.9 g/dL Hematocrit 34.2 % Mean Corpuscular Volume 88.1 fL Mean Corpuscular Hemoglobin 28.1 pg Mean Corpuscular Hemoglobin Concent 31.9 g/dl Platelet Count 160 K/uL Mean Platelet Volume 11.0 fL Neutrophils (%) (Auto) 94.2 % Lymphocytes (%) (Auto) 2.3 % Monocytes (%) (Auto) 3.1 % Eosinophils (%) (Auto) 0.0 % Basophils (%) (Auto) 0.0 % Neutrophils # (Auto) 21.20 K/uL Lymphocytes # (Auto) 0.52 K/uL Monocytes # (Auto) 0.69 K/uL Eosinophils # (Auto) 0.01 K/uL Basophils # (Auto) 0.00 K/uL RDW Standard Deviation 42.9 fL RDW Coefficient of Variation 13.4 % Immature Granulocyte % (Auto) 0.4 % Immature Granulocyte # (Auto) 0.08 K/uL Sodium Level 135 mmol/L Potassium Level 4.0 mmol/L Chloride Level 103 mmol/L Carbon Dioxide Level 25 mmol/L Anion Gap 7.0 mmol/L Blood Urea Nitrogen 11 mg/dl Creatinine 0.75 mg/dl Est Creatinine Clear Calc Drug Dose 99.6 ml/min Estimated GFR () 113.1 Estimated GFR (Non- 97.6 BUN/Creatinine Ratio 15.2 Random Glucose 103 mg/dl Calcium Level 8.3 mg/dl Assessment and Plan Diverticulitis - presumably. eating undercooked foods begs the question of a food borne illness, but no vomiting/diarrhea, CT was unehanced but overall situation fits with diverticulitis more than other possible pathologies - continue cipro and flagyl - WBC improving. exam unchanged but otherwise clinical picture improving. d/w pt concern w ongoing fairly exquisite tenderness on exam re ?abscess not seen on initial CT - but since most of these can be managed w abx as well no urgency in repeating films as long as she's overall showing improvement - suspect slow improvement due to transplant meds -- follow up - if any worsening or if ongoing exquisite tenderness by tomorrow then repeat CT with PO contrast to r/o anything that would require surgical or IR intervention - continue pain and nausea control S/p Kidney Transplant - Continue on [employer] cellcept, prograf and prednisone 5 mg daily - Stable renal function - d/w pt HTN - Cont metoprolol succ 100mg BID, follow BP - reasonable control DVT proph - heparin sq CODE STATUS: FULL CODE
[2016-06-07] MEDS: SIMVASTATIN 20 MG TAB PO SCH (21:12)
[2016-06-07] MEDS: VENLAFAXINE HCL XR 37.5 MG CAPXR PO SCH (21:12)
[2016-06-08] MEDS: HYDROmorphone INJ 0.5 MG/0.5 ML SYR IV PRN (01:35)
[2016-06-08] MEDS: METRONIDAZOLE / NSS 500 MG in PREMIXED NSS 100 ML IV SCH ×2 (04:12→12:03)
[2016-06-08] MEDS: HEPARIN SOD 5000 UNIT/0.5 ML CARP SQ SCH ×3 (05:33→20:36)
[2016-06-08] MEDS: SODIUM CHLORIDE 0.9% 1000ML 1,000 ML IV SCH ×2 (06:07→16:05)
[2016-06-08 07:02] VITALS: BP 146/94; PULSE 90; TEMP 36.7; O2SAT 98
[2016-06-08 07:44] LABS: BASO ABS # 0.01 K/uL (0-0.2); COMPLETE YES; EOS % 0.2 %; HEMATOCRIT 31.8 % (37-47); IG% 0.3 %; LYMPH % 2.1 %; LYMPH ABS # 0.43 K/uL (1.2-3.4); MEAN CELL VOLUME 88.1 fL (80-100); MEAN CORPUSCULAR HEMOGLOBIN 28.8 pg (25-34); MEAN CORPUSCULAR HGB CONC 32.7 g/dl (32-36); MEAN PLATELET VOLUME 11.3 fL (7.4-10.4); MONO % 3.5 %; NEUT % 93.9 %; PLATELET COUNT 165 K/uL (130-400); RED BLOOD COUNT 3.61 M/uL (4.2-5.4); WHITE BLOOD COUNT 20.54 K/uL (4.8-10.8)
[2016-06-08] MEDS: CIPROFLOXACIN / D5W 400 MG in PREMIXED IN D5W 200 ML IV SCH (08:02)
[2016-06-08] MEDS: MYCOPHENOLATE MOFETIL 250 MG CAP (CELLCEPT) PO SCH ×2 (08:02→20:34)
[2016-06-08] MEDS: TACROLIMUS 1 MG CAP PO SCH ×2 (08:03→20:33)
[2016-06-08] MEDS: HYDROXYCHLOROQUINE SULFATE 200 MG TAB PO SCH (08:03)
[2016-06-08] MEDS: CLOPIDOGREL BISULFATE 75 MG TAB PO SCH (08:03)
[2016-06-08] MEDS: PANTOprazole SOD 40 MG TAB PO SCH (08:03)
[2016-06-08] MEDS: METOPROLOL SUCC 50MG EXT REL TAB PO SCH ×2 (08:04→20:36)
--- NOTE | 2016-06-08 14:38 | Progress Note ---
Subjective Date of Service: Jun 08, 2016. Subjective Pt evaluation today including: conversation w/ patient, physical exam, chart review, lab review, review of inpatient medication list feeling a little better less pain hungry no nausea small BM no f/c/s Problem List Medical Problems: (1) Colitis, acute Status: Acute Review of Systems ros otherwise negative except for as above Objective Vital Signs Date Time Temp Pulse Resp B/P Pulse Ox O2 Delivery O2 Flow Rate FiO2 06/08/16 08:00 Room Air 06/08/16 07:02 36.7 90 16 146/94 98 Room Air 06/08/16 00:01 Room Air 06/07/16 23:12 36.7 89 16 133/87 98 Room Air 06/07/16 21:11 94 144/94 06/07/16 19:30 Room Air 06/07/16 16:05 99 Room Air 06/07/16 15:53 36.9 84 18 132/88 99 Room Air Physical Exam General Appearance: no apparent distress Eyes: EOMI ENT: hearing grossly normal Neck: trachea midline Respiratory/Chest: no respiratory distress, no accessory muscle use Abdomen: soft, + tenderness (LLQ and periumbilical pain persists - still fairly exquisite but less than yseterday and no guarding (not even voluntary) no rebound - still very tender but better than yestesrday) Extremities: normal range of motion 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 as 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, alert, normal mood/affect Skin: normal color, warm/dry Laboratory Results Last 24 Hours Test 06/08/16 00:00 06/08/16 07:05 White Blood Count 20.54 K/uL Red Blood Count 3.61 M/uL Hemoglobin 10.4 g/dL Hematocrit 31.8 % Mean Corpuscular Volume 88.1 fL Mean Corpuscular Hemoglobin 28.8 pg Mean Corpuscular Hemoglobin Concent 32.7 g/dl Platelet Count 165 K/uL Mean Platelet Volume 11.3 fL Neutrophils (%) (Auto) 93.9 % Lymphocytes (%) (Auto) 2.1 % Monocytes (%) (Auto) 3.5 % Eosinophils (%) (Auto) 0.2 % Basophils (%) (Auto) 0.0 % Neutrophils # (Auto) 19.26 K/uL Lymphocytes # (Auto) 0.43 K/uL Monocytes # (Auto) 0.72 K/uL Eosinophils # (Auto) 0.05 K/uL Basophils # (Auto) 0.01 K/uL RDW Standard Deviation 43.4 fL RDW Coefficient of Variation 13.4 % Immature Granulocyte % (Auto) 0.3 % Immature Granulocyte # (Auto) 0.07 K/uL Assessment and Plan Diverticulitis - presumably. eating undercooked foods begs the question of a food borne illness, but no vomiting/diarrhea, CT was unehanced but overall situation fits with diverticulitis more than other possible pathologies - continue cipro and flagyl - WBC improving. exam now slightly improved and overall clinical picture clearly improving. d/w pt likely slow to resolve due to immune suppressants. 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
[2016-06-08 14:50] VITALS: BP 133/84; PULSE 82; TEMP 37; O2SAT 97
[2016-06-08 16:00] VITALS: O2SAT 97
[2016-06-08] MEDS ORDERED: OXYCODONE/ACETAMINOPHEN 5-325 TAB PO PRN (17:15)
[2016-06-08] MEDS ORDERED: ONDANSETRON 4MG OD TAB PO PRN (17:15)
[2016-06-08] MEDS: ACETAMINOPHEN 325 MG TAB PO PRN (20:29)
[2016-06-08 20:31] VITALS: BP 150/100; PULSE 78
[2016-06-08] MEDS: METRONIDAZOLE 500 MG TAB PO SCH (20:33)
[2016-06-08] MEDS: CIPROFLOXACIN 500 MG TAB PO SCH (20:33)
[2016-06-08] MEDS: VENLAFAXINE HCL XR 37.5 MG CAPXR PO SCH (20:35)
[2016-06-08] MEDS: SIMVASTATIN 20 MG TAB PO SCH (20:36)
[2016-06-08 23:54] VITALS: BP_SYST 145; BP_SYST 150; BP_DIAS 101; BP_DIAS 102; PULSE 80; TEMP 36.5; O2SAT 96
[2016-06-09 00:58] VITALS: BP 122/77
[2016-06-09] MEDS: HEPARIN SOD 5000 UNIT/0.5 ML CARP SQ SCH ×2 (04:46→13:43)
[2016-06-09 06:00] LABS: BASO % 0.2 %; BASO ABS # 0.02 K/uL (0-0.2); COMPLETE YES; EOS % 1.5 %; HEMATOCRIT 30.6 % (37-47); IG% 0.4 %; LYMPH % 7.7 %; MEAN CELL VOLUME 87.2 fL (80-100); MEAN CORPUSCULAR HEMOGLOBIN 29.1 pg (25-34); MEAN CORPUSCULAR HGB CONC 33.3 g/dl (32-36); MEAN PLATELET VOLUME 11.2 fL (7.4-10.4); MONO % 8.2 %; PLATELET COUNT 183 K/uL (130-400); RED BLOOD COUNT 3.51 M/uL (4.2-5.4); WHITE BLOOD COUNT 12.91 K/uL (4.8-10.8)
[2016-06-09 06:39] LABS: BUN/CREATININE RATIO 8.9 (10-20); CREATININE 0.84 mg/dl (0.60-1.20); POTASSIUM 3.6 mmol/L (3.5-5.1)
[2016-06-09 07:08] VITALS: BP 148/97; PULSE 66; TEMP 37; O2SAT 98
[2016-06-09 08:00] VITALS: O2SAT 98
[2016-06-09] MEDS: METOPROLOL SUCC 50MG EXT REL TAB PO SCH (08:12)
[2016-06-09] MEDS: TACROLIMUS 1 MG CAP PO SCH (08:12)
[2016-06-09] MEDS: CIPROFLOXACIN 500 MG TAB PO SCH (08:13)
[2016-06-09] MEDS: PANTOprazole SOD 40 MG TAB PO SCH (08:13)
[2016-06-09] MEDS: CLOPIDOGREL BISULFATE 75 MG TAB PO SCH (08:13)
[2016-06-09] MEDS: HYDROXYCHLOROQUINE SULFATE 200 MG TAB PO SCH (08:13)
[2016-06-09] MEDS: METRONIDAZOLE 500 MG TAB PO SCH ×2 (08:14→13:43)
[2016-06-09] MEDS: MYCOPHENOLATE MOFETIL 250 MG CAP (CELLCEPT) PO SCH (08:14)
--- NOTE | 2016-06-09 11:46 | Discharge Summary ---
Discharge Summary Date of Service Jun 09, 2016. Discharge Summary Admission Date: Jun 05, 2016 at 17:56 Discharge Date: Jun 09, 2016 Discharge Disposition: Home Principal Diagnosis: diverticulitis Procedures: CT abd w/o IMPRESSION: 1. Atrophy of the upper [place] kidneys 2. Right lower quadrant transplant kidney. No perinephric fluid collections. Mild fullness of the transplant collecting system a finding which may be physiologic 3. Limited evaluation of the bowel given the lack of intravenous and oral contrast. Moderately extensive diverticulosis. Mild bowel wall thickening most pronounced involving the ascending colon. Clinical correlation in regards to a colitis is recommended 4. No evidence of bowel obstruction. No evidence of free air. No evidence of acute appendicitis. 5. Trace free fluid within the pelvis Medication Reconciliation New Medications: Ciprofloxacin (Ciprofloxacin HCl) 500 Mg Tab 500 MG PO BID for 4 Days, #8 TAB Metronidazole (Metronidazole) 500 Mg Tab 500 MG PO TID for 4 Days, #12 TAB Continued Medications: Acetaminophen (Tylenol) 500 Mg Tab 1000 MG PO UD PRN for Pain, TAB TAKE PER PACKAGE DIRECTIONS Clopidogrel (Plavix) 75 Mg Tab 75 MG PO DAILY, TAB Hydroxychloroquine Sulfate (Plaquenil) 200 Mg Tab 200 MG PO DAILY, TAB TAKE THIS MEDICATION ONCE DAILY WITH FOOD OR MILK Metoprolol Succinate (Metoprolol Succinate ER) 100 Mg Tabcr 100 MG PO BID Mycophenolate Mofetil (Cellcept) 500 Mg Tab 500 MG PO QPM, TAB Mycophenolate Mofetil (Cellcept) 500 Mg Tab 1000 MG PO QAM, TAB Omeprazole (Prilosec) 20 Mg Capcr 20 MG PO DAILY, CAP Prednisone (Prednisone) 5 Mg Tab 5 MG PO DAILY, TAB Simvastatin (Zocor) 20 Mg Tab 20 MG PO QPM, TAB Tacrolimus (Prograf) 1 Mg Cap 2 MG PO BID, CAP Venlafaxine Hcl (Venlafaxine Hcl Er) 37.5 Mg Tab 37.5 MG PO QPM TAKE THIS MEDICATION ONCE DAILY WITH FOOD Hospital Course This is a 41 yo F with PMHx of right abdominal kidney transplant in 2002 ([facility]) on immunsuppressant regimen, HTN and diverticulosis presenting with acute onset of abdominal pain which started at 11 Am today. She was scheduled to see rheumatology this morning and went to her appointment but was sent directly to the ED. She recently returned from a 2 week long trip in [place] on Thursday. She reports eating a variety of food including undercooked meats and shellfish. She traveled with her and a friend who do not have any abdominal complaints. She notes feeling bloated with worsening abdominal pain with bowel movements. She first noted this pain with a bowel movement today, and notes it was loose. She has received morphine sulfate which has dropped her pain from a 10/10 to a 5/10. She denies any nausea, vomiting, constipation. She denies fever, sweats or chills. Pt does report night sweats which have been ongoing for some time now. Here in the ED WBC is elevated at 19K with a left shift, Na= 135. A CT of the abdomen w/o contrast was obtained and shows a moderated diverticulosis. She was treated for diverticulitis with IV cipro and flagyl and switched over to po. She started tolerating low-residue diet. She does report stool mixed with mucous, non-bloody, but that this is her baseline due to her cellcept which is a known side effect. She has been on stable doses of cellcelpt 1000/500 , prograf 2/2, and prednisone 5mg for years now. Her creat has been stable throughout admission, between 0.7-1.0. UA only had small LE and with only 1-5 wbcs, and no tenderness around the transplant site. Serologies and studies were negative for shiga tox E coli, salmonella, shigella , campy, giardia pending on discharge , neg for rotavirus. On day of discharge, she only complained of very mild soreness in the LLQ of her abdomen, tolerated diet and adequately taking in fluids. Afebrile. Vital Signs Date Time Temp Pulse Resp B/P Pulse Ox O2 Delivery O2 Flow Rate FiO2 06/09/16 08:00 98 Room Air 06/09/16 07:08 37.0 66 18 148/97 nad, aox3, anicteric sclerae s1 s2 rrr, no murmurs appreciated ctab no w/r/r abd soft nt/nd, RLQ transplant site without surrounding erythema, no tenderness and well-healed scar, minimal LLQ tend with deep palp\ no LE edema 1. Diverticulitis - clinically consistent with diverticulitis, unable to confirm with CT abd due to lack of po contrast use - no diarrhea, just loose stools which are her baseline - cont cipro/falgyl to complete 7 days of antibiotics - will need to f/u with PCP and GI 2. LRKT 2003 - creat stable - resume cellcept 1000/500, prograf 2/2, pred 5 - will need to have prograf checked as outpatient with [facility] 3. Lupus with h/o nephritis - cont plaquenil 4. ?CAD - cont metoprolol, plavix, statin Total Time Spent: Greater than 30 minutes This includes examination of the patient, discharge planning, medication reconciliation, and communication with other providers. Discharge Instructions Please refer to the electronic Patient Visit Report (Discharge Instructions) for additional information.
[2016-06-09] MEDS ORDERED: CPR500 PO (11:48)
[2016-06-09] MEDS ORDERED: MTR500 PO (11:48)
--- NOTE | 2016-06-09 11:49 | Discharge Instructions ---
Discharge Instructions Date of Service Jun 09, 2016. Admission Reason for Admission: Abdominal Pain Discharge Discharge Diagnosis / Problem: Diverticulitis Discharge Goals Goal(s): Decrease discomfort, Improve disease control Activity Recommendations Activity Limitations: resume your previous activity . Current Hospital Diet Patient's current hospital diet: Low Fiber Diet Discharge Diet Recommended Diet: N/A (low residue diet) Pending Studies Studies pending at discharge: yes List of pending studies: giardia ag Medical Emergencies . Who to Call and When: Medical Emergencies: If at any time you feel your situation is an emergency, please call 911 immediately. . Non-Emergent Contact Non-Emergency issues call your: Primary Care Provider, Routing Machine Operator, Furnishings Conservator Call Non-Emergent contact if: you have a fever, your pain is worsening . . "Provider Documentation" section prepared by Kiarra Espinoza. . VTE Core Measure Inpt VTE Proph given/why not?: Unfractionated heparin SQ, T.E.D. Stockings, SCD 's
[2016-06-09 12:22] VITALS: BP 148/97; PULSE 66; TEMP 37; O2SAT 98
[2016-06-10 18:07] LABS: O&P GIARDIA AG NOT DETECTED (NOT DETECTED)
== END 2016-06-09 13:56 | disposition home or self-care (01) | DRG 392 ==
LOC: ENRESERVTM → ENRESERVDT → C.EDB 14:48 → C.MS2W 17:56
PROVIDERS: ADMIT Internal Medicine; ATTEND Internal Medicine
DX: K57.92 Diverticulitis of intestine, part unspecified, without perforation or abscess without bleeding (principal); Z94.0 Kidney transplant status; I10 Essential (primary) hypertension; I25.10 Atherosclerotic heart disease of native coronary artery without angina pectoris; M32.9 Systemic lupus erythematosus, unspecified; Z79.02 Long term (current) use of antithrombotics/antiplatelets; Z79.52 Long term (current) use of systemic steroids; Z79.899 Other long term (current) drug therapy; Z87.448 Personal history of other diseases of urinary system; Z97.5 Presence of (intrauterine) contraceptive device